=== PATIENT | female | born 1990 | race Caucasian/White ===

== ENCOUNTER 2017-11-03 13:00 | Inpatient (IN) | payer MEDICAID ==
[2017-11-03 14:56] LABS: ADD MAN DIFF? NO
[2017-11-03 14:59] LABS: WHITE BLOOD COUNT 8.6 10^3/ul (4.8-10.8)
[2017-11-03 14:59] LABS: BASOPHILS % 0.2 % (0.0-2.0); EOSINOPHILS # 0.1 10^3/ul (0.0-0.5); EOSINOPHILS % 1.3 % (0.0-7.0); HEMATOCRIT 33.2 % (37.0-47.0); HEMOGLOBIN 11.5 g/dl (12.0-16.0); LYMPHOCYTES # 1.5 10^3/ul (0.8-2.9); LYMPHOCYTES % 17.3 % (15.0-51.0); MEAN CORPUSCULAR HEMOGLOBIN 27.4 pg (29.0-33.0); MEAN CORPUSCULAR HGB CONC 34.6 g/dl (32.0-37.0); MEAN PLATELET VOLUME 9.3 fl (7.4-10.4); MONOCYTE # 0.8 10^3/ul (0.3-0.9); MONOCYTES % 8.7 % (0.0-11.0); NEUTROPHIL # 6.2 10^3/ul (1.6-7.5); NEUTROPHILS % 71.9 % (39.0-77.0); PLATELET COUNT 286 10^3/UL (140-415); RED CELL DISTRIBUTION WIDTH 13.4 % (11.5-14.5)
[2017-11-03 15:21] LABS: ALANINE AMINOTRANSFERASE 36 IU/L (13-69); ALBUMIN 3.6 g/dl (3.3-4.9); ALBUMIN/GLOBULIN RATIO 1.09; ALKALINE PHOSPHATASE 183 IU/L (42-121); AMYLASE 266 U/L (11-123); ANION GAP 13 (8-16); ASPARTATE AMINO TRANSFERASE 39 IU/L (15-46); BILIRUBIN,INDIRECT 0.1 mg/dl (0-1.1); BILIRUBIN,TOTAL 0.1 mg/dl (0.2-1.3); BLOOD UREA NITROGEN 8 mg/dl (7-20); CALCIUM 8.4 mg/dl (8.4-10.2); CARBON DIOXIDE 23 mmol/L (21-31); CHLORIDE 107 mmol/L (97-110); CREATININE 0.45 mg/dl (0.44-1.00); GLUCOSE 82 mg/dl (70-220); POTASSIUM 3.5 mmol/L (3.5-5.1); SODIUM 139 mmol/L (135-144); TOTAL PROTEIN 6.9 g/dl (6.1-8.1)
[2017-11-03 15:31] LABS: LIPASE 3150 U/L (23-300)
[2017-11-03] MEDS ORDERED: MEPERIDINE 25 MG INJ IV (17:00)
[2017-11-03] MEDS: LACTATED RINGER'S 1,000 ML IV ×2 (17:13→23:45)
[2017-11-03] MEDS ORDERED: FAMOTIDINE 20 MG INJ (17:17)
[2017-11-03] MEDS: AL HYDROX/MG HYDROX/SIMETH 30 ML CUP PO (17:21)
[2017-11-03] MEDS: FAMOTIDINE 20 MG INJ IV (17:23)
[2017-11-03] MEDS: CEFAZOLIN 2 GM/50 ML (PMX) 50 ML IVPB (17:25)
[2017-11-04] MEDS: AL HYDROX/MG HYDROX/SIMETH 30 ML CUP PO (03:28)
[2017-11-04] MEDS: CEFAZOLIN 2 GM/50 ML (PMX) 50 ML IVPB ×3 (05:29→21:34)
[2017-11-04] MEDS: LACTATED RINGER'S 1,000 ML IV ×3 (06:14→21:34)
[2017-11-04] MEDS: FAMOTIDINE 20 MG INJ IV ×2 (06:14→18:20)
[2017-11-04 14:50] LABS: ADD MAN DIFF? NO
[2017-11-04 14:53] LABS: BASOPHILS % 0.3 % (0.0-2.0); EOSINOPHILS # 0.1 10^3/ul (0.0-0.5); EOSINOPHILS % 0.8 % (0.0-7.0); HEMATOCRIT 32.2 % (37.0-47.0); HEMOGLOBIN 10.7 g/dl (12.0-16.0); LYMPHOCYTES # 1.5 10^3/ul (0.8-2.9); LYMPHOCYTES % 21.4 % (15.0-51.0); MEAN CORPUSCULAR HGB CONC 33.2 g/dl (32.0-37.0); MEAN CORPUSCULAR VOLUME 81.1 fl (82.0-101.0); MEAN PLATELET VOLUME 9.5 fl (7.4-10.4); MONOCYTE # 0.4 10^3/ul (0.3-0.9); MONOCYTES % 6.2 % (0.0-11.0); NEUTROPHILS % 70.9 % (39.0-77.0); PLATELET COUNT 265 10^3/UL (140-415); RED BLOOD COUNT 3.97 10^6/ul (4.20-5.40); RED CELL DISTRIBUTION WIDTH 13.3 % (11.5-14.5)
[2017-11-04 14:53] LABS: WHITE BLOOD COUNT 7.1 10^3/ul (4.8-10.8)
[2017-11-04 15:29] LABS: ALANINE AMINOTRANSFERASE 48 IU/L (13-69); ALBUMIN 3.1 g/dl (3.3-4.9); ALKALINE PHOSPHATASE 174 IU/L (42-121); AMYLASE 84 U/L (11-123); ANION GAP 12 (8-16); ASPARTATE AMINO TRANSFERASE 43 IU/L (15-46); BILIRUBIN,INDIRECT 0.1 mg/dl (0-1.1); BILIRUBIN,TOTAL 0.1 mg/dl (0.2-1.3); BLOOD UREA NITROGEN 4 mg/dl (7-20); CALCIUM 8.3 mg/dl (8.4-10.2); CARBON DIOXIDE 22 mmol/L (21-31); CHLORIDE 106 mmol/L (97-110); GLUCOSE 85 mg/dl (70-220); LIPASE 69 U/L (23-300); POTASSIUM 3.7 mmol/L (3.5-5.1); SODIUM 136 mmol/L (135-144); TOTAL PROTEIN 6.2 g/dl (6.1-8.1)
[2017-11-05] MEDS: LACTATED RINGER'S 1,000 ML IV ×3 (04:48→14:09)
[2017-11-05] MEDS: FAMOTIDINE 20 MG INJ IV (05:52)
[2017-11-05] MEDS: CEFAZOLIN 2 GM/50 ML (PMX) 50 ML IVPB ×2 (05:52→14:09)
[2017-11-05] MEDS: AL HYDROX/MG HYDROX/SIMETH 30 ML CUP PO (15:55)
[2017-11-05] MEDS ORDERED: FAMOTIDINE 20 MG TAB GTB (21:00)
== END 2017-11-05 18:42 | disposition home or self-care (01) | DRG 781 ==
LOC: OBT 13:00 → L-D 13:03 → OBT 16:30 → L-D 16:30 → PP1 20:25
DX: O99.613 Diseases of the digestive system complicating pregnancy, third trimester (principal); K85.10 Biliary acute pancreatitis without necrosis or infection; Z3A.34 34 weeks gestation of pregnancy
CPT/HCPCS: 36415; 76705; 76818; 80053; 82150; 83690; 85025

== ENCOUNTER 2017-12-15 09:18 | Inpatient (IN) | payer MEDICAID ==
[2017-12-15] MEDS ORDERED: LIDOCAINE 1% (MPF) 30 ML INJ INJ (09:30)
[2017-12-15] MEDS ORDERED: MISOPROSTOL 200 MCG TAB PR ×2 (09:30→22:00)
[2017-12-15] MEDS ORDERED: METHYLERGONOVINE 0.2 MG INJ IM ×2 (09:30→22:00)
[2017-12-15] MEDS ORDERED: OXYTOCIN 30 UNITS/LR 500 ML IV ×3 (09:30→22:00)
[2017-12-15] MEDS ORDERED: CARBOPROST 250 MCG INJ IM ×2 (09:30→22:00)
[2017-12-15] MEDS ORDERED: IBUPROFEN 600 MG TAB PO (09:30)
[2017-12-15] MEDS: LACTATED RINGER'S 1,000 ML IV ×2 (11:24→15:11)
[2017-12-15] MEDS: OXYTOCIN 30 UNITS/LR 500 ML IV ×3 (11:39→19:45)
[2017-12-15 13:05] LABS: ADD MAN DIFF? NO
[2017-12-15 13:07] LABS: BASOPHILS % 0.5 % (0.0-2.0); EOSINOPHILS # 0.1 10^3/ul (0.0-0.5); EOSINOPHILS % 1.1 % (0.0-7.0); HEMATOCRIT 37.4 % (37.0-47.0); HEMOGLOBIN 12.5 g/dl (12.0-16.0); LYMPHOCYTES # 1.5 10^3/ul (0.8-2.9); LYMPHOCYTES % 24.4 % (15.0-51.0); MEAN CORPUSCULAR HEMOGLOBIN 26.3 pg (29.0-33.0); MEAN CORPUSCULAR HGB CONC 33.4 g/dl (32.0-37.0); MEAN CORPUSCULAR VOLUME 78.7 fl (82.0-101.0); MEAN PLATELET VOLUME 10.2 fl (7.4-10.4); MONOCYTE # 0.5 10^3/ul (0.3-0.9); MONOCYTES % 7.2 % (0.0-11.0); NEUTROPHIL # 4.2 10^3/ul (1.6-7.5); NEUTROPHILS % 66.5 % (39.0-77.0); PLATELET COUNT 277 10^3/UL (140-415); RED BLOOD COUNT 4.75 10^6/ul (4.20-5.40); RED CELL DISTRIBUTION WIDTH 13.5 % (11.5-14.5)
[2017-12-15 13:07] LABS: WHITE BLOOD COUNT 6.3 10^3/ul (4.8-10.8)
[2017-12-15 13:10] LABS: PROTIME 12.2 Sec (11.9-14.9)
[2017-12-15 13:11] LABS: PARTIAL THROMBOPLASTIN TIME 28.8 Sec (25.0-35.0)
[2017-12-15 13:54] LABS: HEPATITIS B SURFACE ANTIGEN NEGATIVE (NEGATIVE)
[2017-12-15 17:30] LABS: RAPID PLASMA REAGIN NONREACTIVE (NR)
[2017-12-15] MEDS ORDERED: BUTORPHANOL 2 MG INJ (17:56)
[2017-12-15] MEDS: BUTORPHANOL 2 MG INJ IV (18:01)
[2017-12-15] MEDS ORDERED: DIBUCAINE 1% 30 GM OINT PR (22:00)
[2017-12-15] MEDS ORDERED: ZOLPIDEM 5 MG TAB PO (22:00)
[2017-12-15] MEDS ORDERED: HYDROCODONE/APAP (5/325) TAB PO (22:00)
[2017-12-15] MEDS: WITCH HAZEL/GLYCERIN PAD PR (22:23)
[2017-12-15] MEDS: LANOLIN 7 GM TUBE TOP (22:23)
[2017-12-15] MEDS: BENZOCAINE 20% 56 ML SPRAY TOP (22:23)
[2017-12-15] MEDS: IBUPROFEN 600 MG TAB PO (23:33)
[2017-12-15] MEDS: LACTATED RINGER'S 1,000 ML IV* (23:35)
[2017-12-16 01:17] LABS: AMPHETAMINE/METHAMPHETAMINE Negative (NEGATIVE); BARBITURATES Negative (NEGATIVE); BENZODIAZEPINES Negative (NEGATIVE); COCAINE Negative (NEGATIVE)
[2017-12-16 02:01] LABS: CANNABINOIDS NEGATIVE (NEGATIVE); OPIATES NEGATIVE (NEGATIVE)
[2017-12-16] MEDS: IBUPROFEN 600 MG TAB PO ×4 (05:18→23:22)
[2017-12-16] MEDS: SENNA/DOCUSATE NA (8.6MG/50MG) TAB PO ×2 (08:20→21:11)
[2017-12-16] MEDS: MAGNESIUM HYDROXIDE 30ML CUP PO ×2 (08:20→21:10)
[2017-12-16 09:19] LABS: ADD MAN DIFF? NO
[2017-12-16 09:23] LABS: WHITE BLOOD COUNT 7.1 10^3/ul (4.8-10.8)
[2017-12-16 09:23] LABS: BASOPHILS % 0.4 % (0.0-2.0); EOSINOPHILS # 0.1 10^3/ul (0.0-0.5); EOSINOPHILS % 0.8 % (0.0-7.0); HEMATOCRIT 33.9 % (37.0-47.0); HEMOGLOBIN 11.4 g/dl (12.0-16.0); LYMPHOCYTES % 27.9 % (15.0-51.0); MEAN CORPUSCULAR HEMOGLOBIN 26.6 pg (29.0-33.0); MEAN CORPUSCULAR HGB CONC 33.6 g/dl (32.0-37.0); MEAN CORPUSCULAR VOLUME 79.2 fl (82.0-101.0); MEAN PLATELET VOLUME 9.7 fl (7.4-10.4); MONOCYTE # 0.5 10^3/ul (0.3-0.9); MONOCYTES % 7.3 % (0.0-11.0); NEUTROPHIL # 4.5 10^3/ul (1.6-7.5); NEUTROPHILS % 63.2 % (39.0-77.0); PLATELET COUNT 240 10^3/UL (140-415); RED BLOOD COUNT 4.28 10^6/ul (4.20-5.40); RED CELL DISTRIBUTION WIDTH 13.5 % (11.5-14.5)
[2017-12-16] MEDS: HYDROCODONE/APAP (5/325) TAB PO (13:55)
[2017-12-17] MEDS: IBUPROFEN 600 MG TAB PO ×2 (05:30→13:12)
[2017-12-17] MEDS: SENNA/DOCUSATE NA (8.6MG/50MG) TAB PO (08:57)
[2017-12-17] MEDS: MAGNESIUM HYDROXIDE 30ML CUP PO (08:57)
[2017-12-17] MEDS: VARICELLA VACCINE LIVE/PF 1,350 UNIT/0.5 ML ML SC* (09:00)
[2017-12-17] MEDS: MEASLES,MUMPS,RUBELLA VACCINE INJ SC* (09:52)
[2017-12-17] MEDS: DIPHTH/TET/ACEL PERTUSS (ADULT) 0.5 ML VIAL IM* (14:07)
== END 2017-12-17 13:10 | disposition home or self-care (01) | DRG 775 ==
LOC: L-D 09:18 → PP1 21:12
PROVIDERS: Obstetrics & Gynecology
PROC: 10E0XZZ Delivery of Products of Conception, External Approach (ICD-10-PCS; principal; 2017-12-15 09:00)
PROC: 3E033VJ Introduction of Other Hormone into Peripheral Vein, Percutaneous Approach (ICD-10-PCS; 2017-12-15 09:00)
PROC: 4A1HXCZ Monitoring of Products of Conception, Cardiac Rate, External Approach (ICD-10-PCS; 2017-12-15 09:00)
DX: O48.0 Post-term pregnancy (principal); O69.81X0 Labor and delivery complicated by cord around neck, without compression, not applicable or unspecified; Z3A.40 40 weeks gestation of pregnancy; Z37.0 Single live birth; Z23 Encounter for immunization
CPT/HCPCS: 76815; 80307; 85025; 85610; 85730; 86592; 86850; 86900; 86901; 87340; 90715; 99464